=== PATIENT | male | born 1980 ===

== ENCOUNTER 2022-04-16 08:26 | Emergency (ER) | payer SELFPAY ==
[2022-04-16 08:38] VITALS: BP 150/80
[2022-04-16] MEDS ORDERED: IBUPROFEN 600 MG TAB PO ONE (11:13)
[2022-04-16] MEDS ORDERED: LIDOCAINE (1%) 10 MG/1 ML VIAL 20 ML MDV INFILTRATI ONE (11:13)
[2022-04-16] MEDS ORDERED: ACETAMINOPHEN 500 MG TAB PO ONE (11:13)
--- NOTE | 2022-04-16 12:42 | Emergency Department Report ---
ED Upper Extremity Inj HPI - General Chief Complaint: Wound/Laceration Stated Complaint: FINGER LACERATION Source: patient, EMS Mode of arrival: Stretcher Limitations: No Limitations - History of Present Illness Initial Comments: Patient is a 42-year-old -[place] male with no past medical history who presents to the ED with complaint of acute onset persistent painful bleeding right middle finger laceration wound after his right middle finger was accidentally cut by a lever on his [employer] truck about 1 hour ago. Patient states that he is up-to-date with all his tetanus vaccinations. Patient denies dizziness, syncope, numbness and tingling or weakness of right hand, fall, nausea and vomiting, lightheadedness, neck pain, chest pain and shortness of breath. MD Complaint: Injury to:: right, finger (middle finger laceration) -: Sudden, hour(s) (1) Other Extremity Injury: Hand: Right (Right middle finger laceration wound) Other Injuries: none Handedness: right Place: home Severity scale (0 -10): 7 Improves With: none Worsens With: movement of extremity Context: laceration Associated Symptoms: denies other symptoms. denies: weakness, numbness, neck pain, suspects foreign body, nausea/vomiting - Related Data Previous Rx's Medication Instructions Recorded Last Taken Type Ibuprofen [Motrin] 800 mg PO Q8HR PRN #30 tablet 04/16/22 Unknown Rx cephALEXin [Keflex] 500 mg PO Q8HR #30 cap 04/16/22 Unknown Rx traMADoL [Ultram] 50 mg PO Q6HR PRN #12 tablet 04/16/22 Unknown Rx Allergies Allergy/AdvReac Type Severity Reaction Status Date / Time sulfamethoxazole AdvReac Hives Verified 04/16/22 08:39 [From Bactrim] trimethoprim [From Bactrim] AdvReac Hives Verified 04/16/22 08:39 ED Review of Systems ROS: Stated complaint: FINGER LACERATION Other details as noted in HPI Constitutional: denies: chills, fever Eyes: denies: eye pain, eye discharge, vision change ENT: denies: ear pain, throat pain Respiratory: denies: cough, shortness of breath, wheezing Cardiovascular: denies: chest pain, palpitations Endocrine: no symptoms reported Gastrointestinal: denies: abdominal pain, nausea, vomiting, diarrhea Genitourinary: denies: urgency, dysuria Musculoskeletal: arthralgia (Painful right middle finger due to a bleeding laceration wound). denies: back pain, joint swelling Skin: other (Bleeding right middle finger laceration wound with pain). denies: rash, lesions Neurological: denies: headache, weakness, paresthesias Psychiatric: denies: anxiety, depression Hematological/Lymphatic: denies: easy bleeding, easy bruising ED Past Medical Hx - Medications Home Medications: Home Medications Medication Instructions Recorded Confirmed Last Taken Type Ibuprofen [Motrin] 800 mg PO Q8HR PRN #30 tablet 04/16/22 Unknown Rx cephALEXin [Keflex] 500 mg PO Q8HR #30 cap 04/16/22 Unknown Rx traMADoL [Ultram] 50 mg PO Q6HR PRN #12 tablet 04/16/22 Unknown Rx ED Physical Exam - General Limitations: No Limitations General appearance: alert, in no apparent distress - Head Head exam: Present: atraumatic, normocephalic, normal inspection - Eye Eye exam: Present: normal appearance, PERRL, EOMI Pupils: Present: normal accommodation - ENT ENT exam: Present: normal exam, normal orophraynx, mucous membranes moist, TM's normal bilaterally, normal external ear exam - Neck Neck exam: Present: normal inspection, full ROM. Absent: tenderness - Respiratory Respiratory exam: Present: normal lung sounds bilaterally. Absent: respiratory distress, wheezes, rales, rhonchi, stridor, chest wall tenderness, accessory muscle use, decreased breath sounds - Cardiovascular Cardiovascular Exam: Present: regular rate, normal rhythm, normal heart sounds. Absent: systolic murmur, diastolic murmur, rubs, gallop - GI/Abdominal GI/Abdominal exam: Present: soft, normal bowel sounds. Absent: tenderness, guarding, rebound, hyperactive bowel sounds, hypoactive bowel sounds, organomegaly, mass - Extremities Exam Extremities exam: Present: normal inspection, full ROM, tenderness (Palpable right middle finger tenderness due to a bleeding 4 cm laceration wound), normal capillary refill. Absent: pedal edema, joint swelling, calf tenderness - Back Exam Back exam: Present: normal inspection, full ROM. Absent: tenderness, CVA tenderness (R), CVA tenderness (L), muscle spasm, paraspinal tenderness, vertebral tenderness - Neurological Exam Neurological exam: Present: alert, oriented X3, CN II-XII intact, normal gait, reflexes normal - Psychiatric Psychiatric exam: Present: normal affect, normal mood - Skin Skin exam: Present: warm, dry, intact, normal color, other (Bleeding 4 cm laceration wound on right middle finger on palmar side with localized tenderness). Absent: rash ED Course Vital Signs 04/16/22 08:36 Temperature 98.6 F Pulse Rate 91 H Respiratory 18 Rate Blood Pressure 150/80 [Left] O2 Sat by Pulse 98 Oximetry - Laceration /Wound Repair Right Palm Finger Wound Location: upper extremity (Right middle finger laceration on palmar side) Wound Length (cm): 4 Wound's Depth, Shape: superficial, linear Wound Explored: contaminated Irrigated w/ Saline (ccs): 200 Betadine Prep?: Yes Anesthesia: 1% Lidocaine Volume Anesthetic (ccs): 7 Wound Debrided: extensive Wound Repaired With: sutures Suture Size/Type: 4:0, proline Number of Sutures: 7 Sterile Dressing Applied?: Yes Progress: The wound was extensively debrided with normal saline and Betadine solution. Lidocaine 1% solution was used as a local anesthetic through digital block. When anesthesia was fully achieved, the wound was sutured per protocol using Prolene 4-0 sutures for a total of 7 sutures. Patient tolerated the procedure well. The wound was then dressed appropriately and the patient tolerated procedure well. Patient is neurovascularly intact distal to perform active range of motion with right middle finger. ED Medical Decision Making - Medical Decision Making This is a 42-year-old -[place] male with no past medical history who presents to the ED with complaint of acute onset persistent painful bleeding right middle finger laceration wound after his right middle finger was accidentally cut by a lever on his [employer] truck about 1 hour ago. Patient states that he is up-to-date with all his tetanus vaccinations. In the ED, patient is alert and oriented x3 and is not in any distress. Patient seen dynamically stable. Patient was treated for pain in the ED. Right middle finger laceration wound was extensively cleaned with normal saline and Betadine solution. Lidocaine 1% solution was used as a local anesthetics to digital block. When anesthesia was fully achieved, the wound was sutured per protocol using Prolene 4-0 sutures for a total of 7 sutures. On reevaluation, patient is neurovascularly intact, patient is able to perform active range of motion of the right middle finger after the laceration wound was completed. The wound was then dressed appropriately with 4 x 4 gauze and Kerlix and the patient was discharged home on pain medication and prophylactic antibiotics and advised to return to the ED immediately if symptoms get worse. Patient was also advised to follow-up with his primary care physician in 7 to 10 days for reevaluation, and to follow-up with his primary care physician or return to the ED in 12 to 14 days for suture removal. - Differential Diagnosis Laceration; puncture wound; finger injury Critical care attestation.: If time is entered above; I have spent that time in minutes in the direct care of this critically ill patient, excluding procedure time. ED Disposition Clinical Impression: Laceration of right middle finger w/o foreign body w/o damage to nail Qualifiers: Encounter type: initial encounter Qualified Code(s): S61.212A - Laceration wit hout foreign body of right middle finger without damage to nail, initial encounter Disposition: HOME / SELF CARE / HOMELESS Is pt being admited?: No Does the pt Need Aspirin: No Condition: Stable Instructions: Laceration Care, Adult, [id number], Sutures, [place], or A dhesive Wound Closure, [id number], Sutured Wound Care, [id number] Additional Instructions: Take medication with food, drink plenty of fluids, follow-up with your primary care physician in 7 to 10 days for reevaluation. Return to the ED immediately if symptoms get worse. Otherwise return to the ED or to your primary care physician in 12 to 14 days for suture removal. Prescriptions: cephALEXin [Keflex] 500 mg PO Q8HR #30 cap Ibuprofen [Motrin] 800 mg PO Q8HR PRN #30 tablet PRN Reason: Pain , Severe (7-10) traMADoL [Ultram] 50 mg PO Q6HR PRN #12 tablet PRN Reason: Pain Referrals: [facility] [Provider Group] - 7-10 days Forms: Work/School Release Form(ED) Time of Disposition: 12:45 Print Language: WELSH
== END 2022-04-16 13:32 | disposition home or self-care (01) ==
LOC: ED 08:26
DX: S61.212A Laceration without foreign body of right middle finger without damage to nail, initial encounter (principal); Z88.2 Allergy status to sulfonamides; X58.XXXA Exposure to other specified factors, initial encounter; Y93.89 Activity, other specified; Y92.89 Other specified places as the place of occurrence of the external cause; Y99.8 Other external cause status
CPT/HCPCS: 99283